=== PATIENT | male | born 1980 | race African-American/Black ===

== ENCOUNTER 2016-10-03 22:34 | Emergency (ER) | payer OTHER ==
[~2016-10-03] VITALS: Ht 182.9 cm; Wt 79.4 kg
[2016-10-03 22:42] VITALS: BP 135/70
--- NOTE | 2016-10-03 23:22 | RADIOLOGY REPORT ---
EXAMINATION: 3 VIEWS OF THE RIGHT HAND AND 4 VIEWS OF THE RIGHT WRIST CLINICAL INFORMATION: Hand/wrist injury. COMPARISON: None. FINDINGS: There are no fractures. The bony articulations are maintained. No radiopaque foreign bodies. IMPRESSION: No acute osseous findings involving the right hand or the right wrist.
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
== END 2016-10-04 00:28 ==
LOC: ERH 22:34
DX: S63.501A Unspecified sprain of right wrist, initial encounter (principal); Y04.8XXA Assault by other bodily force, initial encounter
CPT/HCPCS: 73110-RT; 73130-RT

== ENCOUNTER 2017-08-11 00:07 | Emergency (ER) | payer OTHER ==
[~2017-08-11] VITALS: Ht 182.9 cm; Wt 76.2 kg
--- NOTE | 2017-08-11 00:40 | ED CARDIAC/CP/PALPITATIONS ---
History of Present Illness General Chief Complaint: Upper Extremity Problem Stated Complaint: BACK PAIN Source: patient Exam Limitations: no limitations Vital Signs & Intake/Output Vital Signs & Intake/Output Vital Signs Date Time Temp Pulse Resp B/P B/P Pulse O2 O2 Flow FiO2 Mean Ox Delivery Rate 08/11 0027 98.2 71 16 134/84 98 Room Air Room Air Allergies Coded Allergies: No Known Allergies (08/11/17) Reconcile Medications Ibuprofen 800 MG TABLET 1 TAB PO TID PRN pain Triage Nurses Notes Reviewed? yes Onset: Abrupt Duration: hour(s): Timing: recent history Quality/Severity: mild, moderate Location: left parasternal area Radiation: no radiation Activities at Onset: none Prior Chest Pain/Card Workup: no prior chest pain Modifying Factors: Worsens With: movement, palpation. Aspirin Today: no aspirin today Associated Symptoms: left sided chest wall tenderness HPI: 37 yo gentleman in prior good health presents with left sided chest wall pain that begain this morning. It began when he was underneath a sink doing some work. He notes that he stood up and felt a sharp pain in the left side of his chest. It hurts when he moves his left arm and presses upon his chest. He notes no dizziness, diaphoresis, dyspnea, wheezing. He is otherwise well. Past History Travel History Traveled to [place] past 21 day No Medical History Any Pertinent Medical History? see below for history Neurological: NONE EENT: NONE Cardiovascular: NONE Respiratory: NONE Gastrointestinal: NONE Hepatic: NONE Renal: NONE Musculoskeletal: NONE Psychiatric: NONE Endocrine: NONE Blood Disorders: NONE Cancer(s): NONE PEN RIDER/Reproductive: NONE Surgical History Surgical History: none Psychosocial History What is your primary language Estonian Tobacco Use: Current Daily Use Daily Tobacco Use Amount/Type: => 5 Cigarettes daily ETOH Use: occasional use Illicit Drug Use: denies illicit drug use Family History Hx Contributory? No Review of Systems Review of Systems Constitutional: Reports: no symptoms. EENTM: Reports: no symptoms. Respiratory: Reports: no symptoms. Cardiovascular: Reports: no symptoms. GI: Reports: no symptoms. Genitourinary: Reports: no symptoms. Musculoskeletal: Reports: no symptoms. Skin: Reports: no symptoms. Neurological/Psychological: Reports: no symptoms. Hematologic/Endocrine: Reports: no symptoms. Immunologic/Allergic: Reports: no symptoms. All Other Systems: Reviewed and Negative Physical Exam Physical Exam General Appearance: well developed/nourished, mild distress Head: atraumatic, normal appearance Eyes: Bilateral: normal appearance. Ears, Nose, Throat: normal pharynx, normal ENT inspection Neck: normal inspection, supple, full range of motion Respiratory: normal breath sounds, no respiratory distress, quiet respiration, lungs clear, left sided parasternal chest wall tenderness to palpation Cardiovascular: regular rate/rhythm Gastrointestinal: normal bowel sounds, soft, non-tender, no organomegaly Back: normal inspection, normal range of motion Extremities: normal inspection, normal capillary refill, normal range of motion, no edema Neurologic/Psych: no motor/sensory deficits, awake, alert, oriented x 3 Skin: intact, normal color, warm/dry Core Measures ACS in differential dx? No CVA/TIA Diagnosis No Sepsis Present: No Sepsis Focused Exam Completed? No Progress Differential Diagnosis: costochondritis, hypovolemia, musculoskeletal pain, i doubt cardiac issues, perc score is negative Plan of Care: Orders Procedure Date/time Status TROPONIN LEVEL 08/11 27 Complete COMPREHENSIVE METABOLIC PANEL 08/11 27 Complete CBC WITHOUT DIFFERENTIAL 08/11 27 Complete EKG 08/11 27 Active Laboratory Tests 08/11/17 0133: Anion Gap 11, Estimated GFR > 60, BUN/Creatinine Ratio 14.5, Glucose 108 H, Calcium 9.9, Total Bilirubin 0.8, AST 34, ALT 52, Alkaline Phosphatase 51, Troponin I 0.01, Total Protein 7.3, Albumin 4.4, Globulin 2.9, Albumin/Globulin Ratio 1.5 08/11/17 0042: CBC w Diff NO MAN DIFF REQ, RBC 5.69, MCV 84.8, MCH 28.3, RDW 13.8, MPV 8.5, Gran % 49.3, Lymphocytes % 41.8, Monocytes % 7.3, Eosinophils % 0.6, Basophils % 1.0, Absolute Granulocytes 3.2, Absolute Lymphocytes 2.7, Absolute Monocytes 0.5 , Absolute Eosinophils 0, Absolute Basophils 0.1, PUBS MCHC 33.3 Diagnostic Imaging: Viewed by Me: Radiology Read. Discussed w/RAD: Radiology Read. CXR Impression: no acute abnormality, no infiltrates, normal size heart, normal mediastinum, PATIENT: HERRERA LAUREN JR PRESENT AGE: 37 PATIENT ACCOUNT NO: [id number] : 82 LOCATION: [facility] ORDERING PHYSICIAN: Toney Sanabria MD SERVICE DATE: 08/11/17 EXAM TYPE: RAD - XRY- CHEST XRAY, TWO VIEWS EXAMINATION: XR CHEST CLINICAL INFORMATION: Left-sided chest wall pain. COMPARISON: None TECHNIQUE: 2 views of the chest were obtained. FINDINGS: No significant abnormality is noted involving the heart, lungs, mediastinum, bony thorax or soft tissues. IMPRESSION: Unremarkable examination. DICTATED BY: Kirill Bonner MD DATE/TIME DICTATED:08/11/17221 WELDING MANAGER:IGNACIA DATE/TIME TRANSCRIBED:08/11/17221 CONFIDENTIAL, DO NOT COPY WITHOUT APPROPRIATE AUTHORIZATION. <Electronically signed in Other Vendor System> SIGNED BY: Kirill Bonner MD 08/11/17224 Initial ED EKG: early repol, non specific st segment changes. Departure Departure Disposition: HOME OR SELF CARE Condition: Stable Clinical Impression Primary Impression: Chest wall pain Referrals: Patient Has No Primary Care Dr (PCP/Family) Departure Forms: Customer Survey General Discharge Information Prescriptions: Current Visit Scripts Ibuprofen 1 TAB PO TID PRN pain #60 TAB Comments 08/11/17, 3:05am... pt feeling well, ekg with early repol, trop negative. Pt has had symptoms for 12 hours, with negative troponin, reproducible chest pain, and benign ekg... pt declines ibuprofen. Pt safe for discharge. Critical Care Note Critical Care Note Critical Care Time: non-applicable
[2017-08-11] MEDS ORDERED: IBUPROFEN800 M1 PO (00:43)
[2017-08-11 00:49] LABS: ABSOLUTE BASOPHIL COUNT 0.1 /CUMM (0.0-0.2); ABSOLUTE EOSINOPHIL COUNT 0 /CUMM (0.0-0.7); ABSOLUTE GRANULOCYTE CT 3.2 /CUMM (1.4-6.5); ABSOLUTE LYMPH COUNT 2.7 /CUMM (1.2-3.4); ABSOLUTE MONOCYTE COUNT 0.5 /CUMM (0.10-0.60); EOSINOPHIL % 0.6 % (0-5); GRANULOCYTE % 49.3 % (42.2-75.2); HEMATOCRIT 48.2 % (42-52); MEAN CORPUSCULAR HGB 28.3 PG (27.0-31.0); MEAN CORPUSCULAR HGB CONC 33.3 G/DL (33.0-37.0); MEAN CORPUSCULAR VOLUME 84.8 FL (80.0-94.0); MEAN PLATELET VOLUME 8.5 FL (7.4-10.4); PLATELET COUNT 239 /CUMM (130-400); RBC DISTRIBUTION WIDTH 13.8 % (11.5-14.5); RED BLOOD CELL CT 5.69 /CUMM (4.70-6.10); WHITE BLOOD CELL COUNT 6.6 /CUMM (4.8-10.8)
--- NOTE | 2017-08-11 02:25 | RADIOLOGY REPORT ---
EXAMINATION: XR CHEST CLINICAL INFORMATION: Left-sided chest wall pain. COMPARISON: None TECHNIQUE: 2 views of the chest were obtained. FINDINGS: No significant abnormality is noted involving the heart, lungs, mediastinum, bony thorax or soft tissues. IMPRESSION: Unremarkable examination.
[2017-08-11 03:11] VITALS: BP 130/81
== END 2017-08-11 03:12 ==
LOC: ERH 00:07
PROVIDERS: Emergency Medicine
DX: R07.89 Other chest pain (principal)
CPT/HCPCS: 71046; 93005; 93010; J3490